=== PATIENT | male | born 1980 | race Asian ===

== ENCOUNTER 2017-03-10 10:59 | Emergency (ER) | payer OTHER ==
[~2017-03-10] VITALS: Ht 165.1 cm; Wt 60.5 kg
[2017-03-10 13:45] VITALS: BP 124/84
== END 2017-03-10 13:45 | disposition home or self-care (01) ==
LOC: ED 10:59
DX: S05.01XA Injury of conjunctiva and corneal abrasion without foreign body, right eye, initial encounter (principal); H11.31 Conjunctival hemorrhage, right eye; W22.8XXA Striking against or struck by other objects, initial encounter; Y93.89 Activity, other specified; Y99.8 Other external cause status; Y92.89 Other specified places as the place of occurrence of the external cause